=== PATIENT | female | born 1940 | race Caucasian/White ===

== ENCOUNTER 2019-06-23 13:07 | Emergency (ER) | payer MEDICARE ==
[2019-06-23 13:26] VITALS: BP 182/75
--- NOTE | 2019-06-23 13:46 | UC ---
Abdominal Pain Female HPI - HPI Summary HPI Summary: 79 yo with hypertension, returning on a bus trip from [place], when she developed acute vomiting and diarrhea. Aware of decreased appetite and RUQ discomfort this morning, and ate lightly. Shortly after, developed emesis, last about 2.5 hours ago, and is aware of some radiation of discomfort to the epigastrium. Took TUMS and vomited it. Had several bouts of watery diarrhea without cramping, no blood or mucous noted. [place] food at a resort, but yesterday had a tuna sub at a [employer], felt some concern about quality and safety of this. However, had no immediate symptoms, and ate an Irish buffet last night. Had one cocktail and a few sips of wine yesterday. Slept well. No fever. No history of gastritis, reflux or gallbladder disease. She is a resident of [facility], and the bus stopped in [place] to let her off , and her daughter (who lives locally) picked her up there. Aware that she does not drink enough fluid. - History of Current Complaint Chief Complaint: UCAbdominalPain Stated Complaint: RT SIDE PAIN,DIARRHEA,VOMITING Time Seen by Provider: 06/23/19 13:28 Hx Obtained From: Patient, Family/[employer] - here with her daughter. Onset/Duration: Sudden Onset, Lasting Hours Timing: Constant Severity Initially: Moderate Severity Currently: Moderate Pain Intensity: 8 Location: Discrete At: RUQ, Epigastric Radiates: Yes Radiates to: Back - radiates a bit to the right flank. Character: Aching, Cramping Aggravating Factor(s): Food Alleviating Factor(s): Nothing Associated Signs and Symptoms: Positive: Nausea. Negative: Chest Pain, Back Pain, Blood in Stool, Urinary Symptoms - Risk Factors Ectopic Risk Factor: Negative Ovarian Torsion Risk Factor: Negative Allergies/Adverse Reactions: Allergies Allergy/AdvReac Type Severity Reaction Status Date / Time Iodinated Contrast Media Allergy Severe SHAKING Verified 06/23/19 13:38 Sulfa (Sulfonamide Allergy Severe kidney Verified 06/23/19 13:15 Antibiotics) failer adhesive Allergy Unknown ITCHING Verified 06/23/19 13:38 AND RASH amlodipine Allergy Unknown Swelling Verified 06/23/19 13:38 aspirin Allergy Unknown Rash Verified 06/23/19 13:38 codeine Allergy Unknown Swelling Verified 06/23/19 13:38 difluprednate [From Durezol] Allergy Unknown Unknown Verified 06/23/19 13:38 Reaction Details irbesartan Allergy Unknown Coughing Verified 06/23/19 13:38 levofloxacin Allergy Unknown Diarrhea Verified 06/23/19 13:38 nifedipine Allergy Unknown Swelling Verified 06/23/19 13:38 nitrofurantoin Allergy Unknown Unknown Verified 06/23/19 13:38 Reaction Details Penicillins Allergy Unknown Unknown Verified 06/23/19 13:15 Reaction Details MOLD, DUST, TREES Allergy Unknown Unknown Uncoded 06/23/19 13:39 Reaction Details Home Medications: Home Medications Aspirin 81 mg CHEW TAB* [Aspirin Low Dose TAB*] 81 mg PO DAILY 06/23/19 [ History Confirmed 06/23/19] Calcium Carbonate [Calcium] 500 mg PO DAILY 06/23/19 [History Confirmed 06/23/19 ] Cyclosporine 0.05% OPHTH (NF) [Restasis 0.05% OPHTH] 1 drop LEFT EYE 06/23/19 [ History] Lisinopril 10 mg PO DAILY 06/23/19 [History Confirmed 06/23/19] Nepafenac [Ilevro] 0.3 % OP 06/23/19 [History] Sodium Chloride 2% OPTH.KAREN* [Abbi 128 Opth 2% Karen*] 1 drop LEFT EYE Q4H [History Confirmed 06/23/19] PMH/Surg Hx/FS Hx/Imm Hx Cardiovascular History: Hypertension - Surgical History Surgical History: Yes Surgery Procedure, Year, and Place: L5, S1 DISC SURGERY. CATARACS - Family History Known Family History: Positive: Non-Contributory - Social History Occupation: Retired Lives: Alone Alcohol Use: Rare Substance Use Type: None Smoking Status (MU): Never Smoked Tobacco Review of Systems All Other Systems Reviewed And Are Negative: Yes Constitutional: Positive: Fatigue Eyes: Positive: Blurred Vision - hx of Fuch's dystrophy, symptoms vary with level of hydration. Finding that she has more blurring today. ENT: Positive: Negative Respiratory: Positive: Cough - occasional, relates this to use of lisinopril Cardiovascular: Negative: Palpitations, Chest Pain Gastrointestinal: Positive: Abdominal Pain, Vomiting, Diarrhea, Nausea Genitourinary: Positive: Negative. Negative: Dysuria, Frequency, Urgency Motor: Positive: Negative Neurovascular: Positive: Negative Musculoskeletal: Positive: Negative Neurological: Positive: Negative Psychological: Positive: Negative Is Patient Immunocompromised?: No Physical Exam Triage Information Reviewed: Yes Appearance: Ill-Appearing - looks mildly unwell, Pain Distress - moderate, Obese , Other: - No jaundice. Vital Signs: Initial Vital Signs Temp 99.1 F 06/23/19 13:18 Pulse 75 06/23/19 13:18 Resp 18 06/23/19 13:18 BP 182/75 06/23/19 13:18 Pulse Ox 99 06/23/19 13:18 Eyes: Positive: Conjunctiva Clear ENT: Positive: Pharynx normal Neck: Positive: Supple, Nontender, No Lymphadenopathy Respiratory: Positive: Lungs clear, Normal breath sounds Cardiovascular: Positive: RRR, Murmur:Sys:Grade _?_/ - 2, no radiation. [place] sitting, diminishes with lying down. Abdomen Description: Positive: Bruit, Other: - tenderness with palpation of medial liver edge with voluntary guarding, no rebound.. Negative: CVA Tenderness (R), CVA Tenderness (L), Distended, Hepatomegaly, Peritoneal Signs, Splenomegaly Musculoskeletal Exam: Normal Neurological Exam: Normal Neurological: Positive: Alert, Muscle Tone Normal Psychological Exam: Normal Skin Exam: Normal Diagnostics - EKG Cardiac Rate: NL Cardiac Rhythm: Sinus: Normal Ectopy: None ST Segment: Non-Specific EKG Comparison: No Significant Change Re-Evaluation - Re-Evaluation First Eval Re-Evaluation Time: 14:30 - vomited post zofran and maalox Change: Worse Abd Pain Female Course/Dx - Course Course Of Treatment: Zofran effective for nausea. - Differential Dx/Diagnosis Differential Diagnosis: Gall Bladder Disease, Pancreatitis, Peptic Ulcer Disease , Other - gastritis Provider Diagnosis: Right upper quadrant pain - Physician Notification/Consults Discussed Care of Patient With: Julian Myles Discharge - Sign-Out/Discharge Documenting (check all that apply): Patient Departure All imaging exams completed and their final reports reviewed: No Studies - Discharge Plan Condition: Stable Disposition: HOME Patient Education Materials: Acute Abdominal Pain (ED) Additional Instructions: As discussed, you will proceed to the [facility] emergency room for evaluation of possible gallbladder disease - Billing Disposition and Condition Condition: STABLE Disposition: Home
[2019-06-23] MEDS ORDERED: Ondansetron ODT TAB* 4 MG PO ONE (13:59)
[2019-06-23] MEDS ORDERED: Al Hydrox/Mg Hydrox/Simet LIQ* 30 ML UDC PO ONE (14:18)
== END 2019-06-23 14:49 | disposition home or self-care (01) ==
LOC: UCCORT 13:07
DX: R10.11 Right upper quadrant pain (principal); I10 Essential (primary) hypertension
CPT/HCPCS: 93005; 99202; A9270-GY; G0463

== ENCOUNTER 2019-06-23 15:37 | Emergency (ER) | payer MEDICARE ==
[2019-06-23 17:08] LABS: ABS Lymphocytes 1.2 10^3/ul (1.0-4.8); ABS Monocytes 0.5 10^3/ul (0-0.8); ABS Neutrophils 7.2 10^3/ul (1.5-7.7); Eosinophil % 0.1 %; Hematocrit 44 % (35-47); Hemoglobin 14.7 g/dL (12.0-16.0); Mean Corpuscular HGB Conc 34 g/dL (31-36); Mean Corpuscular Hemoglobin 30 pg (27-31); Mean Corpuscular Volume 90 fL (80-97); Mean Platelet Volume 7.9 fL (7.4-10.4); Platelet Count 187 10^3/uL (150-450); Red Blood Count 4.88 10^6 /uL (3.70-4.87); Red Cell Distribution Width 14 % (10-15); White Blood Count 8.9 10^3/uL (3.5-10.8)
[2019-06-23 17:28] LABS: Albumin 4.4 g/dL (3.2-5.2); Albumin/Globulin Ratio 1.5 (1-3); BUN/Creatinine Ratio 19.7 (8-20); C Reactive Protein 11.31 mg/L (<8.01); Calcium 9.5 mg/dL (8.6-10.3); EGFR African American 89.1 (>60); EGFR Non-African American 73.6 (>60); Potassium 3.9 mmol/L (3.5-5.0); Total Bilirubin 2.1 mg/dL (0.2-1.0); Total Protein 7.4 g/dL (6.4-8.9)
[2019-06-23] MEDS ORDERED: Ondansetron INJ* 2 MG/ML VIAL IV ONE (19:14)
[2019-06-23] MEDS ORDERED: Famotidine IV* 10 MG/ML 2 ML (20 mg) IV SLOW PU ONE (19:14)
--- NOTE | 2019-06-23 19:20 | ED ---
Abdominal Pain/Female - HPI Summary HPI Summary: The patient is a 79 y/o F presenting to [facility] accompanied by daughter with a chief complaint of sudden onset RLQ pain this morning. She reports that she has been on vacation in [place] from home in [place], and yesterday she had eaten breakfast at the resort and lunch at a [employer], where she had a tuna sandwich. She felt well then. Today, she woke up and was getting ready for breakfast when she felt nauseous. She ate one piece of Moroccan toast and a piece of rebollar. She was still not feeling well, so she attempted to relieve the nausea with lying down and ambulation to no relief. She then began to develop RLQ pain that moved into the RUQ and epigastric region, and she additionally began vomiting. She went to [facility] but was told to come here due to vomiting and need for labs. She denies fever. She is not currently in pain, and there are no aggravating or alleviating factors. She last had a drink last night. PMHx: HTN (Lisinopril), back surgery, shingles. No cholecystectomy or appendectomy. Nonsmoker, rare EtOH, no substance use. - History of Current Complaint Chief Complaint: EDAbdPain Stated Complaint: PAIN RT FLANK AREA PER PT Time Seen by Provider: 06/23/19 19:12 Hx Obtained From: Patient Onset/Duration: Sudden Onset, Lasting Hours - since this morning, Still Present Timing: Hours Pain Intensity: 0 Pain Scale Used: 0-10 Numeric Location: Other - RLQ moving to RUQ and epigastric Character: Dull Aggravating Factor(s): Nothing Alleviating Factor(s): Nothing Associated Signs and Symptoms: Positive: Nausea, Vomiting, Other: - NEGATIVE: fever Allergies/Adverse Reactions: Allergies Allergy/AdvReac Type Severity Reaction Status Date / Time Iodinated Contrast Media Allergy Severe SHAKING Verified 06/23/19 13:38 Sulfa (Sulfonamide Allergy Severe kidney Verified 06/23/19 13:15 Antibiotics) failer adhesive Allergy Unknown ITCHING Verified 06/23/19 13:38 AND RASH amlodipine Allergy Unknown Swelling Verified 06/23/19 13:38 aspirin Allergy Unknown Rash Verified 06/23/19 13:38 codeine Allergy Unknown Swelling Verified 06/23/19 13:38 difluprednate [From Durezol] Allergy Unknown Unknown Verified 06/23/19 13:38 Reaction Details irbesartan Allergy Unknown Coughing Verified 06/23/19 13:38 levofloxacin Allergy Unknown Diarrhea Verified 06/23/19 13:38 nifedipine Allergy Unknown Swelling Verified 06/23/19 13:38 nitrofurantoin Allergy Unknown Unknown Verified 06/23/19 13:38 Reaction Details Penicillins Allergy Unknown Unknown Verified 06/23/19 13:15 Reaction Details MOLD, DUST, TREES Allergy Unknown Unknown Uncoded 06/23/19 13:39 Reaction Details PMH/Surg Hx/FS Hx/Imm Hx Endocrine/Hematology History: Denies: Hx Diabetes Cardiovascular History: Reports: Hx Hypertension - Surgical History Surgical History: Yes Surgery Procedure, Year, and Place: L5, S1 DISC SURGERY. CATARACS Infectious Disease History: No Infectious Disease History: Reports: Hx Shingles Denies: Traveled Outside the [place] in Last 30 Days - Family History Known Family History: Positive: Hypertension - Social History Alcohol Use: Rare Hx Substance Use: No Substance Use Type: Reports: None Hx Tobacco Use: No Smoking Status (MU): Never Smoked Tobacco Review of Systems Negative: Fever Positive: Abdominal Pain - RLQ pain, Vomiting, Nausea All Other Systems Reviewed And Are Negative: Yes Physical Exam - Summary Physical Exam Summary: Constitutional: Well-developed, Well-nourished, Alert. (-) Distressed Skin: Warm, Dry HENT: Dry oral mucosa, Normocephalic; Atraumatic Eyes: Conjunctiva normal Neck: Musculoskeletal ROM normal neck. (-) JVD, (-) Stridor, (-) Tracheal deviation Cardio: Rhythm regular, rate normal, Heart sounds normal; Intact distal pulses; The pedal pulses are 2+ and symmetric. Radial pulses are 2+ and symmetric. Pulmonary/Chest wall: Effort normal. (-) Respiratory distress, (-) Wheezes, (-) Rales Abd: Soft, (+) Very mild tenderness to deep palpation of the RUQ but Livingston sign is negative, (-) Distension, (-) Guarding, (-) Rebound Musculoskeletal: (-) Edema Neuro: Alert, Oriented x3 Psych: Mood and affect Normal Triage Information Reviewed: Yes Vital Signs On Initial Exam: Initial Vitals Temp Pulse Resp BP Pulse Ox 99.6 F 77 18 197/67 95 06/23/19 15:39 06/23/19 15:39 06/23/19 15:39 06/23/19 15:39 06/23/19 15:39 Vital Signs Reviewed: Yes Diagnostics - Vital Signs Vital Signs Temp Pulse Resp BP Pulse Ox 06/23/19 17:22 98.3 F 79 18 195/81 95 06/23/19 15:39 99.6 F 77 18 197/67 95 - Laboratory Lab Results: Lab Results 06/23/19 06/23/19 06/23/19 Range/Units 16:54 16:54 16:54 WBC 8.9 (3.5-10.8) 10^3/uL RBC 4.88 H (3.70-4.87) 10^6 /uL Hgb 14.7 (12.0-16.0) g/dL Hct 44 (35-47) % MCV 90 (80-97) fL MCH 30 (27-31) pg MCHC 34 (31-36) g/dL RDW 14 (10-15) % Plt Count 187 (150-450) 10^3/uL MPV 7.9 (7.4-10.4) fL Neut % (Auto) 81.2 % Lymph % (Auto) 13.0 % [place] % (Auto) 5.3 % Eos % (Auto) 0.1 % Baso % (Auto) 0.4 % Absolute Neuts (auto) 7.2 (1.5-7.7) 10^3/ul Absolute Lymphs (auto) 1.2 (1.0-4.8) 10^3/ul Absolute Monos (auto) 0.5 (0-0.8) 10^3/ul Absolute Eos (auto) 0.0 (0-0.6) 10^3/ul Absolute Basos (auto) 0.0 (0-0.2) 10^3/ul Absolute Nucleated RBC 0.0 10^3/ul Nucleated RBC % 0.0 Sodium 139 (135-145) mmol/L Potassium 3.9 (3.5-5.0) mmol/L Chloride 107 (101-111) mmol/L Carbon Dioxide 24 (22-32) mmol/L Anion Gap 8 (2-11) mmol/L BUN 15 (6-24) mg/dL Creatinine 0.76 (0.51-0.95) mg/dL Est GFR ( Amer) 89.1 (>60) Est GFR (Non-Af Amer) 73.6 (>60) BUN/Creatinine Ratio 19.7 (8-20) Glucose 135 H (70-100) mg/dL Lactic Acid 0.7 (0.5-2.0) mmol/L Calcium 9.5 (8.6-10.3) mg/dL Total Bilirubin 2.10 H (0.2-1.0) mg/dL AST 240 H (13-39) U/L ALT 239 H (7-52) U/L Alkaline Phosphatase 110 H (34-104) U/L C-Reactive Protein 11.31 H (<8.01) mg/L Total Protein 7.4 (6.4-8.9) g/dL Albumin 4.4 (3.2-5.2) g/dL Globulin 3.0 (2-4) g/dL Albumin/Globulin Ratio 1.5 (1-3) Lipase 12 (11.0-82.0) U/L Result Diagrams: 06/23/19 16:54 06/23/19 16:54 Lab Statement: Any lab studies that have been ordered have been reviewed, and results considered in the medical decision making process. - Ultrasound Gallbladder US Ultrasound Interpretation Completed By: Radiologist Summary of Ultrasound Findings: Impression: There is gallbladder sludge and there are small echogenic calculi in the gallbladder lumen consistent with cholelithiasis. There is mild gallbladder wall thickening measuring 4 mm but negative sonographic Stephens sign and therefore not specific for acute cholecystitis. ED physician has reviewed this radiology report. Re-Evaluation - Re-Evaluation First Eval Re-Evaluation Time: 20:58 Comment: I discussed Dr. Ahumada's consult with the patient. She agrees with admission. Second Eval Re-Evaluation Time: 21:43 Comment: We discussed need for transfer since Dr. Arenas is unavailble tomorrow for ERCP. Abdominal Pain Fem Course/Dx - Course Course Of Treatment: Patient is a 79 y/o F with cc of sudden onset nausea with development of RLQ pain that moved to the RUQ after eating Moroccan toast and rebollar at breakfast, with onset of vomiting afterwards. Still has gallbladder and appendix. Upon physical exam, the patient exhibits very mild tenderness to deep palpation of the RUQ but Livingston sign is negative and dry oral mucosa. Patient administered Zofran, Lactated Ringers, and Pepcid in the ED course. Blood work reveals elevated LFTs. Gallbladder ultrasounds reveals sludge, small calculi, and wall thickening consistent with cholelithiasis. Dr. Ahumada, general surgery, recommends admission with MRCP tomorrow morning instead of surgery tonight. Dr. Kaur, hospitalist, states that the patient will need to be transferred if YAS Kan, is unavailable tomorrow because he will have to perform and ERCP. Dr. Arenas will not be available tomorrow, so transfer will be initiated. Patient agrees with transfer to [facility]. Dr. Irvin at [facility] accepts the patient for transfer. She is diagnosed with choledocholithiasis, rule out obstructive biliary stone. - Diagnoses Differential Diagnosis: Positive: Other - rule out obstructive biliary stone Provider Diagnoses: Choledocholithiasis - Provider Notifications Discussed Care Of Patient With: Jakob Ahumada - general surgery Time Discussed With Above Provider: 20:53 Instructed by Provider To: Transfer - I discussed the patient's case with Dr. Ahumada, and he states the patient needs a MRCP. At 2129, Dr. Kaur, hospitalist, states the patient can be accepted for admission if YAS Kan , will be available tomorrow for ERCP. If not, the patient will need to be transferred. Dr. Arenas is unavailable tomorrow, so transfer will be initiated. At 2205, I discussed the patient's case with a nurse from [facility]; they will return the call after speaking with a physician. Dr. rIvin at [facility] ED accepts the patient for transfer at 2223. Reason For Transfer: Specialty available at [facility] but not refrigeration service inspector. Discharge - Sign-Out/Discharge Documenting (check all that apply): Patient Departure - Patient is accepted for transfer to [facility] by Dr. Irvin. Patient Received Moderate/Deep Sedation with Procedure: No - Discharge Plan Condition: Stable Disposition: TRANS HIGHER LVL OF CARE FAC Referrals: No Primary Care Phys,NOPCP [Primary Care Provider] - - Billing Disposition and Condition Condition: STABLE Disposition: Trans Higher Lvl of Care Fac - Attestation Statements Document Initiated by Scribe: Yes Documenting Scribe: Jami Cha Provider For Whom Scribe is Documenting (Include Credential): Dr. Jalen Meng MD Scribe Attestation: I, Jami Cha, scribed for Dr. Jalen Meng MD on 06/23/19 at 2334. Scribe Documentation Reviewed: Yes Provider Attestation: The documentation as recorded by the scribe, Jami Cha accurately reflects the service I personally performed and the decisions made by me, Dr. Jalen Meng MD Status of Scribe Document: Viewed
[2019-06-23] MEDS ORDERED: Lactated Ringers 1000 ML Bag* 1,000 ML IV ONE (20:00)
[2019-06-23 20:03] LABS: Urine Appearance Clear; Urine Bilirubin Negative (Negative); Urine Blood Negative (Negative); Urine Color Straw; Urine Glucose Negative (Negative); Urine Ketones Negative (Negative); Urine Nitrite Negative (Negative); Urine Protein Negative (Negative); Urine Specific Gravity 1.003 (1.010-1.030); Urine Urobilinogen Negative (Negative)
[2019-06-23 23:31] VITALS: BP 153/62
== END 2019-06-23 22:58 | disposition short-term general hospital (02) ==
LOC: ED 15:37
DX: K80.50 Calculus of bile duct without cholangitis or cholecystitis without obstruction (principal); I10 Essential (primary) hypertension; Z79.899 Other long term (current) drug therapy; Z88.5 Allergy status to narcotic agent; Z88.0 Allergy status to penicillin; Z88.2 Allergy status to sulfonamides; Z88.8 Allergy status to other drugs, medicaments and biological substances; Z88.6 Allergy status to analgesic agent; Z91.041 Radiographic dye allergy status
CPT/HCPCS: 36415; 76705; 80053; 81003; 83605; 83690; 85025; 86140; 93005; 96361; 96374; 96375; 99202; 99285; A9270-GY; G0463; J2405